=== PATIENT | female | born 1960 | race Caucasian/White ===

== ENCOUNTER 2016-03-12 10:51 | Emergency (ER) | payer BC, OTHER ==
--- NOTE | 2016-03-12 13:14 | UC ---
Dental HPI - HPI Summary HPI Summary: left lower molar cracked last week when she was eating. Went to dentist, nothing seen. Was treating with ibuprofen. Now much more pain, facial swelling, feeling feverish. - History of Current Complaint Chief Complaint: UCDentalProblem Stated Complaint: DENTAL COMPLAINT Time Seen by Provider: 03/12/16 13:03 Hx Obtained From: Patient Hx Last Menstrual Period: n/a Onset/Duration: Gradual Onset, Lasting Days - 4 Severity: Moderate Aggravating: Chewing Related History: Previous Dental Care on Same Tooth - fillings - Allergies/Home Medications Allergies/Adverse Reactions: Allergies Allergy/AdvReac Type Severity Reaction Status Date / Time Codeine Allergy Vomiting Verified 03/12/16 12:55 Morphine Allergy See Comment Verified 03/12/16 12:55 Home Medications: Home Medications Benzocaine (Dental) [Oral Analgesic Maximum St] 20 % MT QID PRN 03/12/16 [ History Confirmed 03/12/16] Ibuprofen TAB* [Motrin TAB* 600 MG] 600 mg PO Q3H PRN 03/12/16 [History Confirmed 03/12/16] Mometasone NASAL (NF) [Nasonex (NF)] 1 spray .SEE ORDER DAILY 03/12/16 [History Confirmed 03/12/16] PMH/Surg Hx/FS Hx/Imm Hx Previously Healthy: Yes Endocrine History Of: Denies: Thyroid Disease Cardiovascular History Of: Denies: Cardiac Disorders, Hypertension Respiratory History Of: Denies: Asthma - Surgical History Surgical History: Yes Surgery Procedure, Year, and Place: hysterectomy, bladder mesh, endometriosis. TONSILLECTOMY - Family History Known Family History: Positive: Hypertension - Social History Occupation: Employed Full-time Lives: With Family Alcohol Use: Rare Substance Use Type: None Smoking Status (MU): Never Smoked Tobacco - Immunization History Most Recent Influenza Vaccination: FALL 2013 Review of Systems Constitutional: Negative Skin: Negative Eyes: Negative ENT: Dental Pain Respiratory: Negative Cardiovascular: Negative Gastrointestinal: Negative Genitourinary: Negative Motor: Negative Neurovascular: Negative Musculoskeletal: Negative Neurological: Negative Psychological: Negative All Other Systems Reviewed And Are Negative: Yes Physical Exam Triage Information Reviewed: Yes Appearance: Well-Appearing, No Pain Distress, Well-Nourished Vital Signs: Initial Vital Signs Temp 98.1 F 03/12/16 12:48 Pulse 68 03/12/16 12:48 Resp 18 03/12/16 12:48 BP 123/64 03/12/16 12:48 Vital Signs Reviewed: Yes Eye Exam: Normal ENT: Positive: Hearing grossly normal, Pharynx normal. Negative: Trismus Dental: Positive: Other: - fillings left lower molars. Percussion tenderness. No visible swelling, no drainage Neck exam: Normal Neck: Positive: Supple Respiratory Exam: Normal Cardiovascular Exam: Normal Musculoskeletal Exam: Normal Neurological Exam: Normal Psychological Exam: Normal Skin Exam: Normal Dental Complaint Course/Dx - Differential Dx/Diagnosis Differential Diagnosis/Dx: Dental Abscess, Dental Caries, Fractured Tooth Provider Diagnoses: dental abscess Discharge - Discharge Plan Condition: Stable Disposition: HOME Prescriptions: Cephalexin CAP* [Keflex 500 CAP*] 500 mg PO TID #30 cap HYDROcodone/ACETAMIN 5-325 MG* [[place] 5-325 TAB*] 1 - 2 tab PO Q4H PRN #14 tab MDD 6 tab PRN Reason: Pain Patient Education Materials: Dental Abscess (ED) Referrals: Lauren Groves DO [Primary Care Provider] - Additional Instructions: Call your dentist tomorrow for follow-up
[2016-03-12 13:15] VITALS: BP 123/64
== END 2016-03-12 13:26 | disposition home or self-care (01) ==
LOC: UCCORT 10:51
DX: K04.7 Periapical abscess without sinus (principal); Z88.6 Allergy status to analgesic agent
CPT/HCPCS: 99212; G0463

== ENCOUNTER 2016-10-12 08:27 | Emergency (ER) | payer BC, OTHER ==
[2016-10-12 08:51] VITALS: BP 117/78
--- NOTE | 2016-10-12 09:49 | UC ---
Respiratory Complaint HPI - HPI Summary HPI Summary: cough, sinus congestion, ear pressure, right eye drainage x 3 days. Non productive cough, but green nasal discharge. Pt does daily NS in her nose. No fever. Hx prior sinus infections. No chest pain. No relief with mucinex DM. States she is not from here, is visiting her boyfriend. States she has a class B license will not use narcotics during the day. Can take hydrocodone. Codeine makes her vomit, morphine makes her skin itch and flake. - History of Current Complaint Chief Complaint: UCRespiratory Stated Complaint: COUGH CONGESTION Time Seen by Provider: 10/12/16 09:45 Hx Obtained From: Patient Hx Last Menstrual Period: n/a Onset/Duration: Gradual Onset, Lasting Days, Still Present Timing: Constant Severity Initially: Moderate Severity Currently: Moderate Pain Intensity: 8 Pain Scale Used: 0-10 Numeric Character: Cough: Nonproductive Aggravating Factors: Nothing Alleviating Factors: Nothing Associated Signs And Symptoms: Positive: URI, Nasal Congestion, Sinus Discomfort. Negative: Fever, Chills, Pleuritic Chest Pain, Wheezing, Hemoptysis , Calf Pain, Calf Swelling - Risk Factors Pulmonary Embolism Risk Factors: Negative Cardiac Risk Factors: Negative Pseudomonas Risk Factors: Negative Tuberculosis Risk Factors: Negative - Allergies/Home Medications Allergies/Adverse Reactions: Allergies Allergy/AdvReac Type Severity Reaction Status Date / Time Codeine Allergy Vomiting Verified 10/12/16 08:41 Morphine AdvReac See Comment Verified 10/12/16 08:41 Home Medications: Home Medications Acetaminophen [Acetaminophen Extra Stren] 1,000 mg PO BID PRN 10/12/16 [History Confirmed 10/12/16] Valacyclovir HCl 1 gm PO BID 10/12/16 [History Confirmed 10/12/16] clonazePAM TAB(*) [KlonoPIN TAB(*)] 0.5 mg PO TID PRN 10/12/16 [History Confirmed 10/12/16] guaiFENesin ER TAB [Mucinex*] 600 mg PO BID PRN 10/12/16 [History Confirmed ] hydrOXYzine PAMOATE CAP* [Vistaril CAP*] 25 mg PO DAILY PRN 10/12/16 [History Confirmed 10/12/16] PMH/Surg Hx/FS Hx/Imm Hx Previously Healthy: Yes - Surgical History Surgical History: Yes Surgery Procedure, Year, and Place: hysterectomy, bladder mesh, endometriosis. TONSILLECTOMY - Family History Known Family History: Positive: Hypertension - Social History Occupation: Employed Full-time Alcohol Use: Occasionally Substance Use Type: None Smoking Status (MU): Never Smoked Tobacco - Immunization History Most Recent Influenza Vaccination: FALL 2013 Review of Systems Constitutional: Negative Skin: Negative Eyes: Eye Redness - right ENT: Negative, Ear Ache, Nasal Discharge, Sinus Congestion, Sinus Pain/ Tenderness Respiratory: Cough Cardiovascular: Negative Gastrointestinal: Negative Genitourinary: Negative Motor: Negative Neurovascular: Negative Musculoskeletal: Negative Neurological: Negative Psychological: Negative All Other Systems Reviewed And Are Negative: Yes Physical Exam Triage Information Reviewed: Yes Appearance: Well-Nourished, Ill-Appearing, Pain Distress Vital Signs: Initial Vital Signs Temp 97.9 F 10/12/16 08:46 Pulse 70 10/12/16 08:46 Resp 18 10/12/16 08:46 BP 117/78 10/12/16 08:46 Pulse Ox 98 10/12/16 08:46 Vital Signs Reviewed: Yes Eyes: Positive: Conjunctiva Inflamed - right ENT: Positive: Hearing grossly normal, Pharyngeal erythema, Nasal congestion, Nasal drainage, TMs normal, Other: - max sinus tenderness bilat. Negative: Tonsillar swelling, Tonsillar exudate, Trismus, Muffled/hoarse voice Neck: Positive: Supple, Nontender, No Lymphadenopathy Respiratory: Positive: Lungs clear, Normal breath sounds, No respiratory distress Cardiovascular: Positive: RRR, No Murmur, Pulses Normal, Brisk Capillary Refill Musculoskeletal: Positive: Strength Intact, ROM Intact Neurological: Positive: Alert, Muscle Tone Normal Psychological Exam: Normal Skin Exam: Normal UC Diagnostic Evaluation - Laboratory O2 Sat by Pulse Oximetry: 98 Respiratory Course/Dx - Course Course Of Treatment: Note: after discharge, I spoke with Ji King, who stated pt questioned rx for hydrocodone. Clarification: Rx for narcotic cough syrup would not transmit. Pt may use the hydrocodone with OTC cough syrup and mucinex to suppress her cough. istop [id number], no hydrocodone since 02/2016 - Differential Dx/Diagnosis Differential Diagnosis/HQI/PQRI: Bronchitis, Lower Resp Infection, Sinusitis Provider Diagnoses: acute bilateral maxillary sinusitis. acute cough. acute right conjunctivitis Discharge - Discharge Plan Condition: Stable Disposition: HOME Prescriptions: Clarithromycin TAB* [Biaxin 500 MG TAB*] 500 mg PO BID #20 tab HYDROcodone/ACETAMIN 5-325 MG* [[place] 5-325 TAB*] 1 - 2 tab PO Q4H PRN #14 tab MDD 6 tab PRN Reason: Pain Tobramycin 0.3% OPHTH.MARK* 2 drop RIGHT EYE Q4H #1 btl Patient Education Materials: Narcotic-Antitussive/Expectorant (By mouth), Sinusitis (ED), Acute Cough (ED), Conjunctivitis (ED) Referrals: Lauren Groves DO [Primary Care Provider] - 2 Days Additional Instructions: Return to urgent care if any new or worsening symptoms.
== END 2016-10-12 10:19 | disposition home or self-care (01) ==
LOC: UCCORT 08:27
DX: J01.00 Acute maxillary sinusitis, unspecified (principal); R05 Cough; H10.31 Unspecified acute conjunctivitis, right eye; Z88.5 Allergy status to narcotic agent; Z90.710 Acquired absence of both cervix and uterus
CPT/HCPCS: 99212; G0463